=== PATIENT | female | born 1985 | race Caucasian/White ===

== ENCOUNTER 2019-03-02 18:49 | Emergency (ER) | payer BC, OTHER ==
[2019-03-02 19:10] VITALS: TEMP 98.3
[2019-03-02] MEDS: HYDROcodone 7.5MG/APAP 325MG 1 EA TAB PO ONE (19:21)
[2019-03-02 20:05] VITALS: BP 148/101; O2SAT 99
--- NOTE | 2019-03-02 20:36 | CT ---
EXAM DESCRIPTION: Head CLINICAL HISTORY: focal headache left frontal COMPARISON: None Available. TECHNIQUE: Multiple helical axial tomographic images were obtained of the head without intravenous contrast. Coronal and sagittal reformatted images were obtained. This exam was performed according to our departmental dose-optimization program, which includes automated exposure control, adjustment of the mA and/or kV according to patient size and/or use of iterative reconstruction technique. FINDINGS: There is no acute intracranial hemorrhage. No mass. No midline shift. No ventriculomegaly. Magana-white matter differentiation is maintained. Paranasal sinuses are clear. Mastoid air cells and middle ear spaces are clear. Orbits and orbital contents are unremarkable. Osseous structures are unremarkable. Surrounding soft tissues are unremarkable. IMPRESSION: No acute intracranial process. Electronically signed by: Misael Vasquez MD 03/02/2019 8:34 PM CDT
--- NOTE | 2019-03-02 20:52 | ED.PDOC ---
History of Present Illness - General Chief Complaint: Blood Pressure Problem Stated Complaint: elevated bp Time Seen by Provider: 03/02/19 18:59 Source: patient Exam Limitations: no limitations - History of Present Illness Initial Comments: the patient is a 33-year-old female presenting to emergency room secondary to a headache of approximately 15 hours duration. The patient does occasionally get tension headaches. No real history of migraine headaches. No focal neurological changes. Headache is fairly focal above and behind the left eye. No vision changes. Mild nausea but no vomiting. No syncope or near- syncope. No chest pain. No sinus symptoms. It did wake her up from sleep this morning. It is rated a 6 or 7 out of 10 as far as pain. She has been taking Motrin and Tylenol throughout the day. She did get a strep test with her primary care doctor which was negative. Her blood pressure was noted to be elevated and her primary care doctor's office and she was sent over here. Blood pressure is moderately elevated. Given the focal and the unusual nature of her headache pattern the decision was made to perform a head CT. Timing/Duration: other - 15 hours Severity: moderate Improving Factors: nothing Worsening Factors: nothing Associated Symptoms: headaches Allergies/Adverse Reactions: Allergies Sulfamethoxazole w/Trimethoprim [From Bactrim] Allergy (Verified 11/11/15 21:17) Home Medications: Ambulatory Orders NK 11/11/15 Review of Systems - Review of Systems Constitutional: States: malaise EENTM: States: no symptoms reported Respiratory: States: no symptoms reported Cardiology: States: no symptoms reported Gastrointestinal/Abdominal: States: nausea Genitourinary: States: no symptoms reported Musculoskeletal: States: no symptoms reported Skin: States: no symptoms reported Neurological: States: headache - no nuchal rigidity or meningeal signs. No altered mental status. No focal deficits. Endocrine: States: no symptoms reported All other Systems: No Change from Baseline Past Medical History (General) - Patient Medical History Hx Asthma: No Hx Cardiac Disorders: No Hx Congestive Heart Failure: No Hx Hypertension: No Hx Diabetes: No Surgical History: other - Vaccination History Hx Tetanus, Diphtheria Vaccination: Yes Hx Influenza Vaccination: No Hx Pneumococcal Vaccination: No - Social History Hx Tobacco Use: No Hx Alcohol Use: Yes - Female History Patient : No - Triage Comment ED Triage Comment: Reports she has been feeling dizzy and having increased headaches lately. Pt was falling asleep on school bus. Pt was taken to clinic. Pt blood pressure found to be eleveated. Pt sent over here from clinic. Pt reports bp prior was 169/115. No hx high blood pressure, not taking any medications. Family Medical History - Family History Mother Family History: Unknown Hx Family Hypertension: Yes Hx Cardiac Disease: Yes Physical Exam - Physical Exam General Appearance: Alert, Anxious Eye Exam: bilateral normal Ears, Nose, Throat: hearing grossly normal, normal ENT inspection Neck: full range of motion, supple Respiratory: lungs clear, normal breath sounds, no respiratory distress, no accessory muscle use Cardiovascular/Chest: normal peripheral pulses, regular rate, rhythm, no edema Peripheral Pulses: radial,right: 2+, radial,left: 2+ Gastrointestinal/Abdominal: non tender, soft - bese Rectal Exam: deferred Back Exam: no CVA tenderness, no vertebral tenderness Extremity: non-tender, normal inspection, no pedal edema, normal capillary refill Neurologic: cycle repairer II-XII nml as tested, no motor/sensory deficits, alert, normal mood/affect, oriented x 3 Skin Exam: normal color Comments: Vital Signs - 24 hr 03/02/19 03/02/19 19:01 20:00 Temperature 98.3 F Pulse Rate [ 74 75 left] Respiratory 20 18 Rate Blood Pressure 158/116 148/101 [left] O2 Sat by Pulse 96 99 Oximetry Progress - Progress Progress: 03/02/19 20:52 the patient is a 33-year-old female presenting to emergency room secondary to a focal headache. Blood pressure was moderately elevated and should be followed as an outpatient. Head CT showed no evidence of any acute intracranial pathology. Urinalysis shows dehydration. She does need to increase her fluid intake. She was given a dose of hydrocodone here for the headache. She needs to go home and sleep and increase her fluid intake. ER warnings are given for any significant worsening. Keep routine follow-up with primary care doctor. sari melo [phone] - Results/Orders Results/Orders: Laboratory Tests 03/02/19 03/02/19 19:32 19:32 Urine Color Yellow Urine Appearance Clear Urine pH 6.0 Ur Specific Anza >= 1.030 Urine Protein Negative Urine Glucose (UA) Negative Urine Ketones >=160 Urine Blood Trace-intact H Urine Nitrite Negative Urine Bilirubin Small H Urine Urobilinogen 0.2 Ur Leukocyte Esterase Negative Urine RBC 0-1 Urine WBC 1-3 Ur Epithelial Cells 10-20 Urine Bacteria 1+ Urine Mucus Small Urine HCG, Qual Negative head CT shows no acute intracranial pathology. Departure - Departure Clinical Impression: Frontal headache, Mild dehydration Disposition: Discharge to Home or Self Care Condition: Fair Departure Forms: ED Discharge - Pt. Copy, Patient Portal Self Enrollment Instructions: DI for High Blood Pressure, Headache, Adult Diet: low fat, low cholesterol - increase fluid intake Activity: increase activity as tolerated Referrals: Magalys Florez NP [Primary Care Provider] - 1-2 Weeks Home Medications: Ambulatory Orders NK 11/11/15 Additional Instructions: the patient is a 33-year-old female presenting to emergency room secondary to a focal headache. Blood pressure was moderately elevated and should be followed as an outpatient. Head CT showed no evidence of any acute intracranial pathology. Urinalysis shows dehydration. She does need to increase her fluid intake. She was given a dose of hydrocodone here for the headache. She needs to go home and sleep and increase her fluid intake. ER warnings are given for any significant worsening. Keep routine follow-up with primary care doctor.
== END 2019-03-02 21:00 | disposition home or self-care (01) ==
LOC: ER 18:49
DX: R51 Headache (principal); E86.0 Dehydration; R03.0 Elevated blood-pressure reading, without diagnosis of hypertension; R42 Dizziness and giddiness; Z88.2 Allergy status to sulfonamides